=== PATIENT | female | born 1950 | race Hispanic/Latino ===

== ENCOUNTER 2019-08-24 11:46 | Observation (INO) | payer MEDICARE, MEDICAID ==
[2019-08-24 12:04] LABS: #Eosinphils 0.1 thou/uL (0.0-0.7); #Lymphocytes 2.6 thou/uL (1.20-3.40); #Monocytes 0.4 thou/uL (0.11-0.59); #Neutrophils 4.3 thou/uL (1.40-6.50); %Basophils 0.5 % (0.0-1.0); %Eosinophils 0.9 % (0.0-10.0); %Lymphocytes 35.4 % (21.0-51.0); %Monocytes 5.5 % (0.0-10.0); %Neutrophils 57.8 % (42.0-75.0); Hemoglobin 15.1 g/dL (12.0-16.0); Mean Corpuscular HGB CONC 34.7 g/dL (32.0-36.0); Mean Corpuscular Volume 89.4 fL (78.0-98.0); Mean Platelet Volume 7.4 fL (7.4-10.4); Platelet Count 259 thou/uL (130-400); RBC Distribution Width 12.5 % (11.5-14.5); Red Blood Cell (RBC) Count 4.86 mill/uL (4.20-5.40); White Blood Cell (WBC) Count 7.5 thou/uL (4.8-10.8)
[2019-08-24 12:08] LABS: INR-International Normal Ratio 1.2; PTT 29.8 SEC (22.9-36.1)
[2019-08-24 12:17] LABS: ALT (SGPT) 22 U/L (8-55); AST (SGOT) 24 U/L (5-34); Albumin 4.5 g/dL (3.4-4.8); Alkaline Phosphatase 96 U/L (40-110); Anion Gap 12 mmol/L (10-20); BUN (Urea Nitrogen) 16 mg/dL (9.8-20.1); Bilirubin, Total 0.7 mg/dL (0.2-1.2); Calc. Creatinine Clearance 0 mL/min (70-130); Calcium 9.9 mg/dL (7.8-10.44); Carbon Dioxide 24 mmol/L (23-31); Chloride 105 mmol/L (98-107); Estimated GFR-MDRD 64; Globulin 3.6 g/dL (2.4-3.5); Glucose 108 mg/dL (80-115); Potassium 4.1 mmol/L (3.5-5.1); Protein, Total 8.1 g/dL (6.0-8.3); Sodium 138 mmol/L (136-145)
[2019-08-24] MEDS ORDERED: ISOVUE-370 76%-LOCM 1 ML ONE (12:36)
--- NOTE | 2019-08-24 13:09 | CT ---
CT HEAD WITHOUT CONTRAST: INDICATION: Stroke protocol. Slurred speech. Left side facial droop. COMPARISON: Comparison is made to a previous head CT of 08/28/2014. FINDINGS: There is an apparent aneurysm clip in the base of the skull on the right producing spray artifact whi ch is a stable finding. Ventricles have normal size and position. There is no evidence of intracran ial mass or hemorrhage. No evidence of acute infarct. Craniotomy changes in the right temporal bone again noted. IMPRESSION: No evidence of acute infarct. Findings related to Dr. Watkins at 12:02 p.m. CODE CR POS: [facility]
--- NOTE | 2019-08-24 14:32 | CT ---
CT ANGIOGRAM NECK WITH CONTRAST CT ANGIOGRAM BRAIN WITH CONTRAST: DATE: 08/24/2019 HISTORY: 68-year-old female with acute stroke symptoms: Dysarthria and left facial droop. TECHNIQUE: After IV contrast injection, arterial bolus chasing technique scan performed from aortopulmonic windo w to vertex of head. Coronal and sagittal 3-D MIP reconstructions. FINDINGS: Left vertebral artery is very tiny in caliber diffusely. It terminates in PICA. No high-grade stenosis of right vertebral artery, brachiocephalic, right subclavian, left subclavian, right common carotid, right internal carotid, left common carotid, or left internal carotid, arteries. origin of left [employer]. Aneurysm clip at the vicinity of right carotid terminus. It causes mild str eak artifact partially obscuring the adjacent neighborhood. No M1 segment thrombus, high-grade stenosis, or occlusion identified bilaterally. Other than the region around the aneurysm clip, no pat ent aneurysm lumen identified. No high-grade stenosis or occlusion of bilateral LING. Basilar artery normal. Right pterional craniotomy changes. IMPRESSION: 1) no M1 segment middle cerebral artery thrombosis or occlusion. 2) no high-grade stenosis of internal carotid arteries. 3) status post right anterior circulation intracranial aneurysm clipping. 4) diminutive left vertebral artery.
[2019-08-24] MEDS ORDERED: Aspirin Chewable 81 MG TAB ONE (17:37)
[2019-08-24] MEDS ORDERED: Ondansetron ODT 4 MG TAB SL PRN (19:04)
[2019-08-24] MEDS ORDERED: Acetaminophen 325 MG TAB PO PRN (19:04)
[2019-08-24] MEDS ORDERED: Ondansetron PF 4 MG/2 ML Vial IVP PRN (19:04)
[2019-08-24 19:13] VITALS: BMI 36.3
[2019-08-24] MEDS ORDERED: diphenhydrAMINE 25 MG CAP PO PRN (21:26)
[2019-08-25] MEDS: Aspirin 325 MG TAB PO SCH (09:20)
[2019-08-25] MEDS ORDERED: Prevnar 13-Val Conj/PF 0.5 ML SYRINGE IM ONE (21:00)
--- NOTE | 2019-08-25 21:02 | HP ---
CHIEF COMPLAINT: Right facial droop with slurred speech. HISTORY OF PRESENT ILLNESS: Ms. Johnson is a 68-year-old female with past medical history of hypertension, not taking any medications, came because of sudden onset of right facial droop in the night with slurred speech. Did not have any extremity weakness. Did not have any nausea, dizziness, headache. The patient has been seeing a doctor in [place] and was started on some lisinopril a few months ago for blood pressure, but right now she is not taking any medications. In the ER , the patient was evaluated and found to have right facial droop, found to have mild dysarthria. The patient was given initial CAT scan of the head that was unremarkable. The patient admitted for further evaluation and management. The patient received aspirin in the ER. PAST MEDICAL HISTORY: 1. History of hypertension, not taking any medications. 2. History of anxiety disorder. PAST SURGICAL HISTORY: Status post cholecystectomy, status post , status post surgery for cerebral aneurysm. CURRENT MEDICATIONS: None. ALLERGIES: PENICILLIN. FAMILY HISTORY: Nothing contributory. SOCIAL HISTORY: The patient lives with family. No history of smoking. No history of alcohol or drug abuse. REVIEW OF SYSTEMS: CARDIOVASCULAR: No chest pain or shortness of breath. RESPIRATORY: No fever or cough. GASTROINTESTINAL: No nausea or vomiting. No abdominal pain. CENTRAL NERVOUS SYSTEM: No headache. No dizziness. She had right facial droop. PHYSICAL EXAMINATION: GENERAL: The patient is alert, awake, oriented x3. VITAL SIGNS: Temperature 98, pulse 74, respirations 20, blood pressure 130/60. HEENT: Head is normocephalic and atraumatic. Pupils are equal and reactive. Nasopharynx is pale and dry. NECK: Supple. No JVD. LUNGS: Bilateral air entry. No rales. No rhonchi. HEART: S1 and S2, regular. ABDOMEN: Soft. No distention. No tenderness. Normal bowel sounds. CENTRAL NERVOUS SYSTEM: She had right facial droop. Power; right lower extremity 5/5. Deep tendon reflexes 2+ bilaterally. Plantars downgoing. Sensory intact. LABORATORY DATA: CBC shows WBC 7.5, hemoglobin 15, hematocrit 43, platelets 259. Prothrombin time 15, INR 1.2. Metabolic panel; sodium 138, potassium 4, chloride 104, CO2 of 25, creatinine 0.9, glucose 108. Troponin less than 0.010. DIAGNOSTIC STUDIES: CT scan of the brain showed no evidence of acute infarct. CT scan [place], no cerebral artery thrombosis, no stenosis in the internal carotid artery. There is evidence of right anterior circulation intracranial aneurysm clipping. EKG shows normal sinus rhythm, no acute ST-T changes seen. ASSESSMENT: 1. Acute right facial droop with slurred speech, possible transient ischemic attack, rule out cerebrovascular accident. 2. History of hypertension, not on medications. PLAN: 1. Vital signs q.4 hours. 2. Activity as tolerated. 3. Allergies, penicillin. 4. Hep-Lock. 5. Diet, regular. 6. Aspirin 325 mg daily. 7. MRI of the brain. Job ID: [id number] [facility]
[2019-08-26 06:38] LABS: Cardiac Risk 3.6 (Less than 4.5)
[2019-08-26 07:42] VITALS: BP 140/63; TEMP 97.5
[2019-08-26] MEDS: Aspirin 325 MG TAB PO SCH (08:09)
[2019-08-26] MEDS ORDERED: Milk Of Magnesia 30 ML UDCUP PO SCH (09:00)
--- NOTE | 2019-08-27 13:27 | DIS ---
DATE OF ADMISSION: 08/24/2019 DATE OF DISCHARGE: 08/26/2019 ADMITTING DIAGNOSES: 1. Acute right facial droop with slurred speech, possible transient ischemic attack, rule out cerebrovascular accident. 2. Hypertension by history. FINAL DIAGNOSES: 1. Acute right facial droop, slurred speech, improved, possibly due to transient ischemic attack. No evidence of cerebrovascular accident. 2. Hypertension. BRIEF SUMMARY OF HOSPITAL COURSE: Ms. Johnson is a 68-year-old female admitted because of slurred speech. The patient had a right facial droop as well. Her symptoms resolved in few hours. CT scan of the brain was unremarkable. Brain MRI was not done because of her aneurysm clipping in the past. An echocardiogram was done, showed normal LV function, EF 50%. In view of improvement, the patient is discharged. At the time of discharge, she was stable, her vital signs stable, lungs clear, heart sounds regular, abdomen is soft and nontender. Bowel sounds present. DISCHARGE MEDICATIONS: 1. Lisinopril with hydrochlorothiazide 20/12.5 daily. 2. Benadryl p.r.n. 3. Aspirin 325 mg daily. 4. Milk of magnesia p.r.n. FOLLOWUP: The patient will come for followup in 2 weeks. Job ID: [id number] [facility]
== END 2019-08-26 11:06 | disposition home or self-care (01) ==
LOC: ERS 11:46 → 2SE 18:55
PROVIDERS: ADMIT Internal Medicine; ATTEND Internal Medicine
DX: R47.81 Slurred speech (principal); R29.810 Facial weakness; I10 Essential (primary) hypertension; F41.9 Anxiety disorder, unspecified; Z79.899 Other long term (current) drug therapy; Z88.0 Allergy status to penicillin
CPT/HCPCS: 70450; 70496; 70498; 80053; 80061; 82550; 82962; 84484; 85025; 85610; 85730; 90670; 93005; 93306; 94760; 99291; G0009; G0378 ×4; 36415; 36416; 90471; Q0163; Q9966